=== PATIENT | female | born 1995 | race Two or more races ===

== ENCOUNTER 2020-05-28 07:12 | Inpatient (IN) | payer BC ==
[2020-05-28] MEDS ORDERED: Misoprostol 25 MCG (1/4 of 100 MCG) Tab ONE (07:26)
[2020-05-28] MEDS ORDERED: Oxytocin/Lactated Ringers 10 UNIT/1,000 ML BAG IV SCH (07:30)
[2020-05-28] MEDS ORDERED: Lactated Ringers 1,000 ML IV SCH (07:30)
[2020-05-28] MEDS ORDERED: Sodium Chloride 0.9% 10 ML Syringe FLUSH PRN ×2 (07:30→08:00)
[2020-05-28] MEDS ORDERED: Ondansetron 4 MG/2 ML SDV IVPUSH PRN (07:30)
[2020-05-28] MEDS ORDERED: Nalbuphine 10 MG/ML Syringe IVPUSH PRN (07:30)
--- NOTE | 2020-05-28 07:30 | PCM.LDHP ---
L&D History of Present Illness - General Date of Service: 05/28/20 Admit Problem/Dx: Admission Diagnosis/Problem Admission Diagnosis/Problem Source of Information: Patient History Limitations: Reports: No Limitations - History of Present Illness Introduction:: Patient is a 25 y/o at 40 0/7 wks who presents for elective IOL. Doing well today. No significant contractions - Related Data Allergies/Adverse Reactions: Allergies Allergy/AdvReac Type Severity Reaction Status Date / Time No Known Allergies Allergy Verified 05/28/20 08:27 Home Medications: Home Meds Calcium Carbonate [Tums] 200 mg PO ASDIRECTED 05/28/20 [History] Doxylamine Succinate [Unisom Sleep Aid] 25 mg PO BEDTIME PRN 05/28/20 [History] Prenat 115/Iron Fum/Folic/Dss [ 19 Tablet] 1 each PO DAILY 05/28/20 [History] Past Medical History [employer] History: Reports: : 1 Para: 0 LMP (Approximate): - Infectious Disease History Infectious Disease History: Reports: TB - Past Surgical History HEENT Surgical History: Reports: Naso-Sinus Surgery Social & Family History - Tobacco Use Smoking Status *Q: Never Smoker - Alcohol Use Alcohol Use History: No - Recreational Drug Use Recreational Drug Use: No H&P Review of Systems - Review of Systems: Review Of Systems: See Below General: Reports: No Symptoms Pulmonary: Reports: No Symptoms Cardiovascular: Reports: No Symptoms Gastrointestinal: Reports: No Symptoms Genitourinary: Reports: No Symptoms Musculoskeletal: Reports: No Symptoms Neurological: Reports: No Symptoms L&D Exam - Exam Exam: See Below - OB Specific Contraction Intensity: Irritability Movement: Active Heart Tones: Present Heart Tones per Min: 135 Heart Rate (FHR) Variability: Moderate (6-25 bmp) Presentation: Vertex - Wooten Score Wooten Score Cervix Position: Posterior Wooten Score Consistency: Soft Wooten Score Effacement: 31-50% Wooten Score Dilation: 1-2 cm Wooten Score Infant's Station: -2 Wooten Score Total: 5 - Exam General: Alert, Oriented, Cooperative Lungs: Clear to Auscultation, Normal Respiratory Effort Cardiovascular: Regular Rate, Regular Rhythm GI/Abdominal Exam: Soft, Non-Tender Genitourinary: Normal external exam Extremities: Normal Inspection Skin: Warm, Dry, Intact - Patient Data Result Diagrams: 05/28/20 07:54 - Problem List (1) 40 weeks gestation of SNOMED Code(s): 74940382 ICD Code: Z3A.40 - 40 WEEKS GESTATION OF Status: Acute Current Visit: Yes (2) GBS (group B Streptococcus carrier), +RV culture, currently SNOMED Code(s): 4730366785249, [id number], [id number] ICD Code: O99.820 - STREPTOCOCCUS B CARRIER STATE COMPLICATING Status: Acute Current Visit: Yes Problem List Initiated/Reviewed/Updated: Yes Assessment/Plan Comment:: * Labs done * Cytotec for IOL. Pitocin/AROM when able * GBS positive, will start antibiotics when more active * Pain management per patient preference * Anticipate
[2020-05-28] MEDS ORDERED: Lidocaine 1%/Sod Bicarbonate in NS 8.4% 1 ML Syringe IDERM PRN (08:00)
[2020-05-28] MEDS: Misoprostol 25 MCG (1/4 of 100 MCG) Tab VAG PRN ×2 (12:35→17:06)
--- NOTE | 2020-05-28 12:48 | PCM.PNLD ---
Labor Progress Note - VS & Meds Vital Signs: Last Vital Signs Temp 36.6 C 05/28/20 07:30 Pulse 84 05/28/20 07:30 Resp 14 05/28/20 07:30 BP 115/76 05/28/20 07:30 Pulse Ox 100 05/28/20 07:30 Active Medications: Current Medications Lactated Ringer's (Ringers, Lactated) 1,000 mls @ 40 mls/hr IV ASDIRECTED TYLER Oxytocin/Lactated Ringer's (Pitocin In Lr 10 Units/1,000 Ml) 10 unit in 1,000 mls @ 12 mls/hr IV TITRATE TYLER; Protocol Penicillin G Potassium 5 (millunits/ Sodium Chloride) 100 mls @ 55 mls/hr IV ONETIME TYLER Penicillin G Potassium 2.5 (millunits/ Sodium Chloride) 100 mls @ 55 mls/hr IV Q4H [facility]ER Oxytocin/Lactated Ringer's (Pitocin In Lr 10 Units/1,000 Ml) 10 unit in 1,000 mls @ 500 mls/hr IV .CONTINUOUS [facility] Lactated Ringer's (Ringers, Lactated) 1,000 mls @ 125 mls/hr IV ASDIRECTED [facility]YLER Lidocaine/Sodium Bicarbonate (Buffered Lidocaine 1% In Ns 8.4%) 0.25 ml IDERM ONETIME PRN PRN Reason: Prior to IV Start Misoprostol (Cytotec) 25 mcg VAG Q4H PRN PRN Reason: cervical ripening Last Admin: 05/28/20 12:35 Dose: 25 mcg Documented by: Nalbuphine HCl (Nubain) 10 mg IVPUSH Q2H PRN PRN Reason: Pain Ondansetron HCl (Zofran) 4 mg IVPUSH Q4H PRN PRN Reason: Nausea/Vomiting Sodium Chloride (Saline Flush) 10 ml FLUSH ASDIRECTED PRN PRN Reason: Keep Vein Open Sodium Chloride (Saline Flush) 10 ml FLUSH ASDIRECTED PRN PRN Reason: Keep Vein Open Discontinued Medications Misoprostol (Cytotec) Confirm Administered Dose 25 mcg .ROUTE .STK-MED ONE Stop: 05/28/20 07:27 Last Admin: 05/28/20 07:30 Dose: 25 mcg Documented by: - Uterine Contractions Uterine Monitoring Mode: External [place] Contraction Intensity: Irritability Uterine Resting Tone: Soft - Monitoring Monitor Mode: External Ultrasound Heart Rate (FHR) Baseline: 135 Heart Rate (FHR) Variability: Moderate (6-25 bmp) Accelerations: Present, 15x15 Decelerations: None Strip Review: Category I - Vaginal Exam Dilation (cm): 1 Effacement (Percent): 75 Station: -2 Cervical Position: Midposition - Labor Progress (Free Text) Labor Progress: Doing well. Feeling some menstrual cramps with 1st dose of Cytotec. 2nd dose placed. Attempted to place mendoza, but not able to complete. Will try again later
[2020-05-28] MEDS ORDERED: Penicillin G Potassium 5 MILLUNITS in Sodium Chloride 0.9% 100 ML IV SCH (16:00)
--- NOTE | 2020-05-28 17:14 | PCM.PNLD ---
Labor Progress Note - VS & Meds Vital Signs: Last Vital Signs Temp 36.6 C 05/28/20 07:30 Pulse 84 05/28/20 07:30 Resp 14 05/28/20 07:30 BP 115/76 05/28/20 07:30 Pulse Ox 100 05/28/20 07:30 Active Medications: Current Medications Lactated Ringer's (Ringers, Lactated) 1,000 mls @ 40 mls/hr IV ASDIRECTED TYLER Oxytocin/Lactated Ringer's (Pitocin In Lr 10 Units/1,000 Ml) 10 unit in 1,000 mls @ 12 mls/hr IV TITRATE TYLER; Protocol Penicillin G Potassium 5 (millunits/ Sodium Chloride) 100 mls @ 55 mls/hr IV ONETIME TYELR Penicillin G Potassium 2.5 (millunits/ Sodium Chloride) 100 mls @ 55 mls/hr IV Q4H TYLER Oxytocin/Lactated Ringer's (Pitocin In Lr 10 Units/1,000 Ml) 10 unit in 1,000 mls @ 500 mls/hr IV .CONTINUOUS TYLER Lactated Ringer's (Ringers, Lactated) 1,000 mls @ 125 mls/hr IV ASDIRECTED TYLER Lidocaine/Sodium Bicarbonate (Buffered Lidocaine 1% In Ns 8.4%) 0.25 ml IDERM ONETIME PRN PRN Reason: Prior to IV Start Misoprostol (Cytotec) 25 mcg VAG Q4H PRN PRN Reason: cervical ripening Last Admin: 05/28/20 17:06 Dose: 25 mcg Documented by: Nalbuphine HCl (Nubain) 10 mg IVPUSH Q2H PRN PRN Reason: Pain Ondansetron HCl (Zofran) 4 mg IVPUSH Q4H PRN PRN Reason: Nausea/Vomiting Sodium Chloride (Saline Flush) 10 ml FLUSH ASDIRECTED PRN PRN Reason: Keep Vein Open Sodium Chloride (Saline Flush) 10 ml FLUSH ASDIRECTED PRN PRN Reason: Keep Vein Open Discontinued Medications Misoprostol (Cytotec) Confirm Administered Dose 25 mcg .ROUTE .STK-MED ONE Stop: 05/28/20 07:27 Last Admin: 05/28/20 07:30 Dose: 25 mcg Documented by: - Uterine Contractions Uterine Monitoring Mode: External [place] Contraction Intensity: Mild Uterine Resting Tone: Soft - Monitoring Monitor Mode: External Ultrasound Heart Rate (FHR) Baseline: 125 Heart Rate (FHR) Variability: Moderate (6-25 bmp) Accelerations: Present, 15x15 Decelerations: None Strip Review: Category I - Vaginal Exam Dilation (cm): 1 Effacement (Percent): 75 Station: -2 Cervical Position: Midposition - Labor Progress (Free Text) Labor Progress: Doing well. 3rd cytotec placed with mendoza bulb. Patient tolerated well.
[2020-05-28] MEDS: Lactated Ringers 1,000 ML IV SCH (22:50)
[2020-05-28] MEDS: Oxytocin/Lactated Ringers 10 UNIT/1,000 ML BAG IV SCH (22:51)
[2020-05-29] MEDS ORDERED: Bupivacaine 0.25% 10 ML SDV ONE
[2020-05-29] MEDS: Penicillin G Potassium 2.5 MILLUNITS in Sodium Chloride 0.9% 100 ML IV SCH ×5 (00:10→15:50)
[2020-05-29] MEDS ORDERED: Penicillin G Potassium 5 MILLUNITS in Sodium Chloride 0.9% 100 ML IV ONE (03:15)
[2020-05-29] MEDS ORDERED: diphenhydrAMINE 50 MG/ML SDV IVPUSH PRN (05:07)
[2020-05-29] MEDS ORDERED: ePHEDrine 50 MG/ML SDV IVPUSH PRN (05:07)
[2020-05-29] MEDS ORDERED: fentaNYL 100 MCG/2 ML SDV EPIDUR PRN (05:07)
[2020-05-29] MEDS: Bupivacaine/fentaNYL/NS 100 ML Bag EPIDUR PRN ×2 (05:22→12:01)
--- NOTE | 2020-05-29 05:41 | PCM.PREANE ---
Preanesthetic Assessment - Procedure Proposed Procedure: Epidural - Anesthesia/Transfusion/Family Hx Anesthesia History: Prior Anesthesia Without Reaction Family History of Anesthesia Reaction: No Transfusion History: No Prior Transfusion(s) - Review of Systems General: Fatigue, Malaise Pulmonary: No Symptoms Cardiovascular: No Symptoms Gastrointestinal: Abdominal Pain (labor) Neurological: Numbness (hands) Other: Reports: None - Physical Assessment Vital Signs: Last Vital Signs Temp 36.6 C 05/28/20 07:30 Pulse 84 05/28/20 07:30 Resp 14 05/28/20 07:30 BP 115/76 05/28/20 07:30 Pulse Ox 100 05/28/20 07:30 Height: 1.57 m Weight: 62.142 kg ASA Class: 2 Mental Status: Alert & Oriented x3 Airway Class: Mallampati = 1 Dentition: Reports: Normal Dentition Thyro-Mental Finger Breadths: 3 Mouth Opening Finger Breadths: 3 ROM/Head Extension: Full Lungs: Clear to Auscultation, Normal Respiratory Effort Cardiovascular: Regular Rate, Regular Rhythm - Lab Values: Laboratory Last Values WBC 7.82 K/mm3 (3.98-10.04) 05/28/20 07:54 RBC 3.70 M/mm3 (3.98-5.22) L 05/28/20 07:54 Hgb 10.1 gm/dl (11.2-15.7) L 05/28/20 07:54 Hct 32.3 % (34.1-44.9) L 05/28/20 07:54 MCV 87.3 fl (79.4-94.8) 05/28/20 07:54 MCH 27.3 pg (25.6-32.2) 05/28/20 07:54 MCHC 31.3 g/dl (32.2-35.5) L 05/28/20 07:54 RDW Std Deviation 46.8 fL (36.4-46.3) H 05/28/20 07:54 Plt Count 221 K/mm3 (182-369) 05/28/20 07:54 MPV 11.2 fl (9.4-12.3) 05/28/20 07:54 RPR Non-reactive (NONREACTIVE) 05/28/20 07:54 COVID-19 (AIDEN) Negative (NEGATIVE) 05/28/20 07:58 Blood Type O POSITIVE 05/28/20 07:54 Gel Antibody Screen Negative 05/28/20 07:54 - Allergies Allergies/Adverse Reactions: Allergies Allergy/AdvReac Type Severity Reaction Status Date / Time No Known Allergies Allergy Verified 05/28/20 08:27 - Anesthesia Plan Pre-Op Medication Ordered: None - Acknowledgements Anesthesia Type Planned: Epidural Pt an Appropriate Candidate for the Planned Anesthesia: Yes Alternatives and Risks of Anesthesia Discussed w Pt/Guardian: Yes Pt/Guardian Understands and Agrees with Anesthesia Plan: Yes PreAnesthesia Questionnaire Gastrointestinal History: Reports: GERD 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: - Infectious Disease History Infectious Disease History: Reports: TB - Past Surgical History HEENT Surgical History: Reports: Naso-Sinus Surgery - SUBSTANCE USE Smoking Status *Q: Never Smoker Second Hand Smoke Exposure: No Recreational Drug Use History: No - HOME MEDS Home Medications: Home Meds Calcium Carbonate [Tums] 200 mg PO ASDIRECTED 05/28/20 [History] Doxylamine Succinate [Unisom Sleep Aid] 25 mg PO BEDTIME PRN 05/28/20 [History] Prenat 115/Iron Fum/Folic/Dss [ 19 Tablet] 1 each PO DAILY 05/28/20 [History] - CURRENT (IN HOUSE) MEDS Current Meds: Current Medications Diphenhydramine HCl (Benadryl) 25 mg IVPUSH Q6H PRN PRN Reason: pruritis Ephedrine Sulfate (Ephedrine Sulfate) 5 mg IVPUSH ASDIRECTED PRN PRN Reason: Hypotension Fentanyl (Sublimaze) 100 mcg EPIDUR Q3H PRN PRN Reason: Pain Last Admin: 05/29/20 05:22 Dose: 100 mcg Documented by: Fentanyl/Bupivacaine HCl (Fentanyl/Bupivacaine/Ns 2 Mcg-0.125% 100 Ml) 100 ml EPIDUR ASDIRECTED PRN PRN Reason: Pain Last Admin: 05/29/20 05:22 Dose: 100 ml Documented by: Lactated Ringer's (Ringers, Lactated) 1,000 mls @ 40 mls/hr IV ASDIRECTED TYLER Oxytocin/Lactated Ringer's (Pitocin In Lr 10 Units/1,000 Ml) 10 unit in 1,000 mls @ 12 mls/hr IV TITRATE TYLER; Protocol Last Titration: 05/29/20 04:00 Dose: 12 munits/min, 72 mls/hr Documented by: Oxytocin/Lactated Ringer's (Pitocin In Lr 10 Units/1,000 Ml) 10 unit in 1,000 mls @ 500 mls/hr IV .CONTINUOUS [facility] Lactated Ringer's (Ringers, Lactated) 1,000 mls @ 125 mls/hr IV ASDIRECTED [facility] Last Admin: 05/28/20 22:50 Dose: 125 mls/hr Documented by: Penicillin G Potassium 2.5 (millunits/ Sodium Chloride) 100 mls @ 55 mls/hr IV Q4H [facility] Lidocaine/Sodium Bicarbonate (Buffered Lidocaine 1% In Ns 8.4%) 0.25 ml IDERM ONETIME PRN PRN Reason: Prior to IV Start Misoprostol (Cytotec) 25 mcg VAG Q4H PRN PRN Reason: cervical ripening Last Admin: 05/28/20 17:06 Dose: 25 mcg Documented by: Nalbuphine HCl (Nubain) 10 mg IVPUSH Q2H PRN PRN Reason: Pain Ondansetron HCl (Zofran) 4 mg IVPUSH Q4H PRN PRN Reason: Nausea/Vomiting Sodium Chloride (Saline Flush) 10 ml FLUSH ASDIRECTED PRN PRN Reason: Keep Vein Open Sodium Chloride (Saline Flush) 10 ml FLUSH ASDIRECTED PRN PRN Reason: Keep Vein Open Discontinued Medications Penicillin G Potassium 2.5 (millunits/ Sodium Chloride) 100 mls @ 55 mls/hr IV Q4H [facility] Last Admin: 05/29/20 00:11 Dose: Not Given Documented by: Penicillin G Potassium 5 (millunits/ Sodium Chloride) 100 mls @ 55 mls/hr IV ONETIME ONE Stop: 05/29/20 05:04 Last Admin: 05/29/20 03:18 Dose: 55 mls/hr Documented by: Misoprostol (Cytotec) Confirm Administered Dose 25 mcg .ROUTE .STK-MED ONE Stop: 05/28/20 07:27 Last Admin: 05/28/20 07:30 Dose: 25 mcg Documented by:
[2020-05-29] MEDS: Lactated Ringers 1,000 ML IV SCH ×3 (06:41→18:05)
--- NOTE | 2020-05-29 06:53 | PCM.PNLD ---
Labor Progress Note - VS & Meds Vital Signs: Last Vital Signs Temp 36.6 C 05/28/20 07:30 Pulse 84 05/28/20 07:30 Resp 14 05/28/20 07:30 BP 115/76 05/28/20 07:30 Pulse Ox 100 05/28/20 07:30 Active Medications: Current Medications Diphenhydramine HCl (Benadryl) 25 mg IVPUSH Q6H PRN PRN Reason: pruritis Ephedrine Sulfate (Ephedrine Sulfate) 5 mg IVPUSH ASDIRECTED PRN PRN Reason: Hypotension Fentanyl (Sublimaze) 100 mcg EPIDUR Q3H PRN PRN Reason: Pain Last Admin: 05/29/20 05:22 Dose: 100 mcg Documented by: Fentanyl/Bupivacaine HCl (Fentanyl/Bupivacaine/Ns 2 Mcg-0.125% 100 Ml) 100 ml EPIDUR ASDIRECTED PRN PRN Reason: Pain Last Admin: 05/29/20 05:22 Dose: 100 ml Documented by: Lactated Ringer's (Ringers, Lactated) 1,000 mls @ 40 mls/hr IV ASDIRECTED TYLER Oxytocin/Lactated Ringer's (Pitocin In Lr 10 Units/1,000 Ml) 10 unit in 1,000 mls @ 12 mls/hr IV TITRATE TYLER; Protocol Last Titration: 05/29/20 06:40 Dose: 14 munits/min, 84 mls/hr Documented by: Oxytocin/Lactated Ringer's (Pitocin In Lr 10 Units/1,000 Ml) 10 unit in 1,000 mls @ 500 mls/hr IV .CONTINUOUS TYLER Lactated Ringer's (Ringers, Lactated) 1,000 mls @ 125 mls/hr IV ASDIRECTED TYLER Last Admin: 05/29/20 06:41 Dose: 125 mls/hr Documented by: Penicillin G Potassium 2.5 (millunits/ Sodium Chloride) 100 mls @ 55 mls/hr IV Q4H [facility] Lidocaine/Sodium Bicarbonate (Buffered Lidocaine 1% In Ns 8.4%) 0.25 ml IDERM ONETIME PRN PRN Reason: Prior to IV Start Misoprostol (Cytotec) 25 mcg VAG Q4H PRN PRN Reason: cervical ripening Last Admin: 05/28/20 17:06 Dose: 25 mcg Documented by: Nalbuphine HCl (Nubain) 10 mg IVPUSH Q2H PRN PRN Reason: Pain Ondansetron HCl (Zofran) 4 mg IVPUSH Q4H PRN PRN Reason: Nausea/Vomiting Sodium Chloride (Saline Flush) 10 ml FLUSH ASDIRECTED PRN PRN Reason: Keep Vein Open Sodium Chloride (Saline Flush) 10 ml FLUSH ASDIRECTED PRN PRN Reason: Keep Vein Open Discontinued Medications Penicillin G Potassium 2.5 (millunits/ Sodium Chloride) 100 mls @ 55 mls/hr IV Q4H [facility]YLER Last Admin: 05/29/20 00:11 Dose: Not Given Documented by: Penicillin G Potassium 5 (millunits/ Sodium Chloride) 100 mls @ 55 mls/hr IV ONETIME ONE Stop: 05/29/20 05:04 Last Admin: 05/29/20 03:18 Dose: 55 mls/hr Documented by: Misoprostol (Cytotec) Confirm Administered Dose 25 mcg .ROUTE .STK-MED ONE Stop: 05/28/20 07:27 Last Admin: 05/28/20 07:30 Dose: 25 mcg Documented by: - Uterine Contractions Uterine Monitoring Mode: External [place] Contraction Intensity: Moderate Uterine Resting Tone: Soft - Monitoring Monitor Mode: External Ultrasound Heart Rate (FHR) Baseline: 130 Heart Rate (FHR) Variability: Moderate (6-25 bmp) Accelerations: Present, 15x15 Decelerations: Variable, Intermittent (<50% x 20 min) Strip Review: Category II - Vaginal Exam Dilation (cm): 4 Effacement (Percent): 75 Station: -2 Cervical Position: Midposition - Labor Progress (Free Text) Labor Progress: Patient doing well. Pitocin started around 2230. Currently at 14. PCN started at 0330. Epidural done about 2 hours ago. AROM performed with release of scant, clear fluid. Continue present management
--- NOTE | 2020-05-29 10:58 | PCM.PNLD ---
Labor Progress Note - VS & Meds Vital Signs: Last Vital Signs Temp 36.6 C 05/28/20 07:30 Pulse 84 05/28/20 07:30 Resp 14 05/28/20 07:30 BP 115/76 05/28/20 07:30 Pulse Ox 100 05/28/20 07:30 Active Medications: Current Medications Diphenhydramine HCl (Benadryl) 25 mg IVPUSH Q6H PRN PRN Reason: pruritis Ephedrine Sulfate (Ephedrine Sulfate) 5 mg IVPUSH ASDIRECTED PRN PRN Reason: Hypotension Fentanyl (Sublimaze) 100 mcg EPIDUR Q3H PRN PRN Reason: Pain Last Admin: 05/29/20 05:22 Dose: 100 mcg Documented by: Fentanyl/Bupivacaine HCl (Fentanyl/Bupivacaine/Ns 2 Mcg-0.125% 100 Ml) 100 ml EPIDUR ASDIRECTED PRN PRN Reason: Pain Last Admin: 05/29/20 05:22 Dose: 100 ml Documented by: Lactated Ringer's (Ringers, Lactated) 1,000 mls @ 40 mls/hr IV ASDIRECTED TYLER Oxytocin/Lactated Ringer's (Pitocin In Lr 10 Units/1,000 Ml) 10 unit in 1,000 mls @ 12 mls/hr IV TITRATE TYLER; Protocol Last Titration: 05/29/20 09:57 Dose: 18 munits/min, 108 mls/hr Documented by: Oxytocin/Lactated Ringer's (Pitocin In Lr 10 Units/1,000 Ml) 10 unit in 1,000 mls @ 500 mls/hr IV .CONTINUOUS TYLER Lactated Ringer's (Ringers, Lactated) 1,000 mls @ 125 mls/hr IV ASDIRECTED TYLER Last Admin: 05/29/20 10:20 Dose: 125 mls/hr Documented by: Penicillin G Potassium 2.5 (millunits/ Sodium Chloride) 100 mls @ 55 mls/hr IV Q4H [facility]YLER Last Admin: 05/29/20 07:35 Dose: 55 mls/hr Documented by: Lidocaine/Sodium Bicarbonate (Buffered Lidocaine 1% In Ns 8.4%) 0.25 ml IDERM ONETIME PRN PRN Reason: Prior to IV Start Misoprostol (Cytotec) 25 mcg VAG Q4H PRN PRN Reason: cervical ripening Last Admin: 05/28/20 17:06 Dose: 25 mcg Documented by: Nalbuphine HCl (Nubain) 10 mg IVPUSH Q2H PRN PRN Reason: Pain Ondansetron HCl (Zofran) 4 mg IVPUSH Q4H PRN PRN Reason: Nausea/Vomiting Sodium Chloride (Saline Flush) 10 ml FLUSH ASDIRECTED PRN PRN Reason: Keep Vein Open Sodium Chloride (Saline Flush) 10 ml FLUSH ASDIRECTED PRN PRN Reason: Keep Vein Open Discontinued Medications Penicillin G Potassium 2.5 (millunits/ Sodium Chloride) 100 mls @ 55 mls/hr IV Q4H TYLER Last Admin: 05/29/20 00:11 Dose: Not Given Documented by: Penicillin G Potassium 5 (millunits/ Sodium Chloride) 100 mls @ 55 mls/hr IV ONETIME ONE Stop: 05/29/20 05:04 Last Admin: 05/29/20 03:18 Dose: 55 mls/hr Documented by: Misoprostol (Cytotec) Confirm Administered Dose 25 mcg .ROUTE .STK-MED ONE Stop: 05/28/20 07:27 Last Admin: 05/28/20 07:30 Dose: 25 mcg Documented by: - Uterine Contractions Uterine Monitoring Mode: External [place] Contraction Intensity: Moderate to Strong Uterine Resting Tone: Soft - Monitoring Monitor Mode: External Ultrasound Heart Rate (FHR) Baseline: 130 Heart Rate (FHR) Variability: Moderate (6-25 bmp) Accelerations: Present, 15x15 Decelerations: Late (rare) Strip Review: Category II - Vaginal Exam Dilation (cm): 8 Effacement (Percent): 90 Station: 0 Cervical Position: Anterior - Labor Progress (Free Text) Labor Progress: Doing well. On 18 of pitocin. Continue present management
[2020-05-29] MEDS: Oxytocin/Lactated Ringers 10 UNIT/1,000 ML BAG IV SCH (12:01)
[2020-05-29] MEDS ORDERED: Methylergonovine 0.2 MG/1 ML Amp ONE (17:22)
[2020-05-29] MEDS ORDERED: Methylergonovine 0.2 MG/1 ML Amp IM STA (17:47)
--- NOTE | 2020-05-29 17:52 | PCM.DEL ---
L & D Note - General Info Date of Service: 05/29/20 - Delivery Note Labor: Induced by ARM, Induced by Oxytocin Cervical Ripening Method: Balloon Device, Misoprostil Delivery Outcome: Livebirth Infant Delivery Method: Spontaneous Vaginal Delivery-Single Delivery Mode: Spontaneous Presentation: Left Occiput Anterior ([place]) Nuchal Cord: None Anesthesia Type: Epidural Amniotic Fluid Description: Clear Episiotomy Type: None Laceration: 2nd Degree, Perineal Suture type: Vicryl Suture size: 2-0 Placenta: Intact, Spontaneous Cord: 3 Vessels Estimated Blood Loss: 500 Resuscitation Needed: Yes : Bulb Syringe, Stimulated, Warmed, [place] Used, Warmer Used Delivery Comments (Free Text/Narrative):: The patient was pushing in the dorsal lithotomy position. Sterile vaginal exam complete/complete/+3 station. head in [place] presentation. Maternal pushing effort was good and the pelvis was felt to be adequate for an instrument assisted delivery. Given maternal exhaustion, the decision was made to proceed with vacuum assisted vaginal delivery. The mushroom cup was placed without difficulty at 1658. Subsequent vacuum assisted vaginal delivery with pushing at 1703 over 3 contractions. Total pressure applied 550 mm Hg. Total pop offs 0. Suction was removed following delivery of the head. No nuchal cord. The remainder of the infant delivered without difficulty. The umbilical cord was clamped and cut and the infant was taken to the warmer. Inspection of the perineum following delivery with 2nd degree with was close, but did not involve the rectum. Rectal exam confirmed this. Laceration repaired with a 2-0 vicryl in the typical fashion. After delivery patient with slow continued bleeding. Given IM methergine and sweep of [place] done. Still with continued slight bleeding and findings of maternal tachycardia and BP's of 50/30's. Given IM hemabate and IV tranexamic acid. Given IVF as well. Eventually responded to interventions. Hb down and 8.3 from admission value around 10. Vacuum Extractor Progress Note - Alternative Labor Strategies Considered Alternative Labor Strategies Considered:: Reports: Yes Strategies Considered:: Reports: Contraction Intensity Adequate, Position Changes Used to Facilitate Rotation & Descent, Empty Bladder, Rest Indications Considered:: Reports: Yes Indications:: Reports: Shortening of 2nd Stage for Maternal Benefit Time Out:: Reports: Yes - Patient Prepared Patient Prepared:: Reports: Yes Informed Consent:: Reports: Verbal Risks: Reports: Yes Risks Include:: Reports: Laceration, Shoulder Dystocia, Maternal Injury Anesthesia/Analgesia Adequate:: Reports: Yes - Probability of Success High Probability of Success:: Reports: Yes Weight Estimated:: Reports: AGA Patient Diabetic:: Reports: Yes Pelvis Adequate:: Reports: Yes Position:: [place] Asynclitic:: Reports: No Station:: +3 - Application Time Maximum Application Time & Number of Pop-Offs Predetermined:: Reports: Yes Maximum Pressure Maintained in [place] (cm Hg):: 550 Total Application Time (min): *max=20min: 5 Number of Times Cup Disengaged:: 0 Type of Vacuum Used:: Reports: Cup: Mushroom type Vacuum Extraction: Successful - Exit Strategy Exit strategy available:: Reports: Yes and resuscitation teams readily available:: Reports: Yes - General Info Date of Service: 05/29/20 - Patient Data Vitals - Most Recent: Last Vital Signs Temp 36.6 C 05/28/20 07:30 Pulse 84 05/28/20 07:30 Resp 14 05/28/20 07:30 BP 115/76 05/28/20 07:30 Pulse Ox 100 05/28/20 07:30 Weight - Most Recent: 62.142 kg Lab Results Last 24 Hours: Laboratory Results - last 24 hr 05/28/20 Range/Units 07:54 RPR Non-reactive (NONREACTIVE) - Problem List & Annotations (1) 40 weeks gestation of SNOMED Code(s): 42424562 Code(s): Z3A.40 - 40 WEEKS GESTATION OF Status: Acute Current Visit: Yes (2) GBS (group B Streptococcus carrier), +RV culture, currently SNOMED Code(s): 6309604725478, 110221874, 0746274023636 Code(s): O99.820 - STREPTOCOCCUS B CARRIER STATE COMPLICATING Status: Acute Current Visit: Yes (3) Vacuum extraction, delivered, current hospitalization SNOMED Code(s): 783219493 Code(s): O66.5 - ATTEMPTED APPLICATION OF VACUUM EXTRACTOR AND FORCEPS Status: Acute Current Visit: Yes - Problem List Review Problem List Initiated/Reviewed/Updated: Yes - My Orders Last 24 Hours: My Active Orders 05/29/20 07:30 Penicillin G Potassium [Pfizerpen] 2.5 millunits Sodium Chloride 0.9% [Normal Saline] 100 ml IV Q4H - Assessment Assessment:: PPD#0 - Plan Plan:: * Routine cares * Breast feeding * Continue to monitor hemodynamic status closely. Will plan for CBC in AM * Discharge home in 1-2 days
[2020-05-29] MEDS ORDERED: Carboprost Tromethamine 250 MCG/1 ML Amp ONE (17:59)
[2020-05-29] MEDS ORDERED: Carboprost Tromethamine 250 MCG/1 ML Amp IM ONE (18:05)
[2020-05-29] MEDS ORDERED: Promethazine 25 MG/ML SDV IM ONE (18:11)
[2020-05-29] MEDS ORDERED: Sennosides 8.6 MG Tab PO PRN (18:30)
[2020-05-29] MEDS ORDERED: Acetaminophen 325 MG Tab PO PRN (18:30)
[2020-05-29] MEDS ORDERED: Docusate Sodium 100 MG Cap PO PRN (18:30)
[2020-05-29] MEDS ORDERED: Benzocaine/Menthol 20%-0.5% Spray 56 GM Canister TOP PRN (18:30)
[2020-05-29] MEDS ORDERED: Witch Hazel Medicated Pads 40/Jar TOP PRN (18:30)
--- NOTE | 2020-05-29 20:37 | PCM.SN.2 ---
- Free Text/Narrative Note: 2034 Patient still with tachycardic into 120-130's. Still with some hypotensive episodes. Does, however, feel relatively well only with some nausea, weakness. Will given 1 unit of PRBCs and then repeat CBC in AM Rowena Nuñez.
[2020-05-29] MEDS ORDERED: Sodium Chloride 0.9% 1,000 ML IV SCH (20:45)
[2020-05-30] MEDS: Ibuprofen 600 MG Tab PO PRN ×2 (06:10→15:12)
--- NOTE | 2020-05-30 07:07 | PCM.PNPP ---
- General Info Date of Service: 05/30/20 Functional Status: Reports: Pain Controlled, Tolerating Diet, Urinating - Review of Systems General: Reports: Fatigue Pulmonary: Reports: No Symptoms Cardiovascular: Reports: No Symptoms Gastrointestinal: Reports: Nausea Genitourinary: Reports: Other (perineal pain) Musculoskeletal: Reports: No Symptoms Neurological: Reports: No Symptoms - Patient Data Vital Signs - Most Recent: Last Vital Signs Temp 36.8 C 05/30/20 02:03 Pulse 89 05/30/20 02:03 Resp 16 05/30/20 02:03 BP 121/69 05/30/20 02:03 Pulse Ox 100 05/30/20 02:03 Weight - Most Recent: 62.142 kg I&O - Last 24 Hours: Intake & Output 05/29/20 05/30/20 05/30/20 22:59 06:59 14:59 Intake Total 5600 360 Output Total 800 Balance 4800 360 Lab Results - Last 24 Hours: Laboratory Results - last 24 hr 05/28/20 05/29/20 05/29/20 Range/Units 07:54 18:25 18:25 WBC 19.64 H (3.98-10.04) K/mm3 RBC 3.02 L (3.98-5.22) M/mm3 Hgb 8.3 L D (11.2-15.7) gm/dl Hct 26.4 L (34.1-44.9) % MCV 87.4 (79.4-94.8) fl MCH 27.5 (25.6-32.2) pg MCHC 31.4 L (32.2-35.5) g/dl RDW Std Deviation 46.5 H (36.4-46.3) fL Plt Count 192 (182-369) K/mm3 MPV 10.4 (9.4-12.3) fl PT 10.4 (9.7-12.0) SECONDS INR 0.95 APTT 32 H (22-31) SECONDS Fibrinogen 414 (187-446) mg/dL Crossmatch See Detail 05/30/20 Range/Units 05:39 WBC 15.77 H (3.98-10.04) K/mm3 RBC 2.64 L (3.98-5.22) M/mm3 Hgb 7.3 L* (11.2-15.7) gm/dl Hct 22.9 L (34.1-44.9) % MCV 86.7 (79.4-94.8) fl MCH 27.7 (25.6-32.2) pg MCHC 31.9 L (32.2-35.5) g/dl RDW Std Deviation 44.8 (36.4-46.3) fL Plt Count 151 L (182-369) K/mm3 MPV 10.5 (9.4-12.3) fl PT (9.7-12.0) SECONDS INR APTT (22-31) SECONDS Fibrinogen (187-446) mg/dL Crossmatch Med Orders - Current: Current Medications Acetaminophen (Tylenol) 650 mg PO Q4H PRN PRN Reason: mild pain or fever Benzocaine/Menthol (Dermoplast Pain Relief [place]) 0 gm TOP ASDIRECTED PRN PRN Reason: Perineal Comfort Measure Last Admin: 05/29/20 22:37 Dose: 1 canister Documented by: Docusate Sodium (Colace) 100 mg PO BID PRN PRN Reason: Constipation Sodium Chloride (Normal Saline) 1,000 mls @ 125 mls/hr IV ASDIRECTED TYLER Last Admin: 05/29/20 22:09 Dose: 125 mls/hr Documented by: Ibuprofen (Motrin) 600 mg PO Q6H PRN PRN Reason: Mild pain or fever Senna (Senna) 8.6 mg PO BEDTIME PRN PRN Reason: Constipation Witch Steven (Tucks) 1 pad TOP ASDIRECTED PRN PRN Reason: Perineal Comfort Measure Last Admin: 05/29/20 22:37 Dose: 1 container Documented by: Discontinued Medications Carboprost Tromethamine (Hemabate Ds) Confirm Administered Dose 250 mcg .ROUTE .STK-MED ONE Stop: 05/29/20 18:00 Last Admin: 05/29/20 18:08 Dose: Not Given Documented by: Carboprost Tromethamine (Hemabate Ds) 250 mcg IM ONETIME ONE Stop: 05/29/20 18:06 Last Admin: 05/29/20 18:03 Dose: 250 mcg Documented by: Diphenhydramine HCl (Benadryl) 25 mg IVPUSH Q6H PRN PRN Reason: pruritis Ephedrine Sulfate (Ephedrine Sulfate) 5 mg IVPUSH ASDIRECTED PRN PRN Reason: Hypotension Fentanyl (Sublimaze) 100 mcg EPIDUR Q3H PRN PRN Reason: Pain Last Admin: 05/29/20 05:22 Dose: 100 mcg Documented by: Fentanyl/Bupivacaine HCl (Fentanyl/Bupivacaine/Ns 2 Mcg-0.125% 100 Ml) 100 ml EPIDUR ASDIRECTED PRN PRN Reason: Pain Last Admin: 05/29/20 12:01 Dose: 100 ml Documented by: Lactated Ringer's (Ringers, Lactated) 1,000 mls @ 40 mls/hr IV ASDIRECTED TYLER Oxytocin/Lactated Ringer's (Pitocin In Lr 10 Units/1,000 Ml) 10 unit in 1,000 mls @ 12 mls/hr IV TITRATE TYLER; Protocol Last Titration: 05/29/20 16:39 Dose: 22 munits/min, 132 mls/hr Documented by: Penicillin G Potassium 2.5 (millunits/ Sodium Chloride) 100 mls @ 55 mls/hr IV Q4H TYLER Last Admin: 05/29/20 00:11 Dose: Not Given Documented by: Oxytocin/Lactated Ringer's (Pitocin In Lr 10 Units/1,000 Ml) 10 unit in 1,000 mls @ 500 mls/hr IV .CONTINUOUS TYLER Lactated Ringer's (Ringers, Lactated) 1,000 mls @ 125 mls/hr IV ASDIRECTED TYLER Last Admin: 05/29/20 18:05 Dose: 125 mls/hr Documented by: Penicillin G Potassium 5 (millunits/ Sodium Chloride) 100 mls @ 55 mls/hr IV ONETIME ONE Stop: 05/29/20 05:04 Last Admin: 05/29/20 03:18 Dose: 55 mls/hr Documented by: Penicillin G Potassium 2.5 (millunits/ Sodium Chloride) 100 mls @ 55 mls/hr IV Q4H TYLER Last Admin: 05/29/20 15:50 Dose: 55 mls/hr Documented by: Lidocaine/Sodium Bicarbonate (Buffered Lidocaine 1% In Ns 8.4%) 0.25 ml IDERM ONETIME PRN PRN Reason: Prior to IV Start Methylergonovine Maleate (Methergine) Confirm Administered Dose 0.2 mg .ROUTE .STK-MED ONE Stop: 05/29/20 17:23 Last Admin: 05/29/20 18:08 Dose: Not Given Documented by: Methylergonovine Maleate (Methergine) 0.2 mg IM NOW STA Stop: 05/29/20 17:48 Last Admin: 05/29/20 17:25 Dose: 0.2 mg Documented by: Misoprostol (Cytotec) Confirm Administered Dose 25 mcg .ROUTE .STK-MED ONE Stop: 05/28/20 07:27 Last Admin: 05/28/20 07:30 Dose: 25 mcg Documented by: Misoprostol (Cytotec) 25 mcg VAG Q4H PRN PRN Reason: cervical ripening Last Admin: 05/28/20 17:06 Dose: 25 mcg Documented by: Nalbuphine HCl (Nubain) 10 mg IVPUSH Q2H PRN PRN Reason: Pain Ondansetron HCl (Zofran) 4 mg IVPUSH Q4H PRN PRN Reason: Nausea/Vomiting Last Admin: 05/29/20 14:29 Dose: 4 mg Documented by: Promethazine HCl (Phenergan) 25 mg IM ONETIME ONE Stop: 05/29/20 18:12 Last Admin: 05/30/20 02:30 Dose: Not Given Documented by: Sodium Chloride (Saline Flush) 10 ml FLUSH ASDIRECTED PRN PRN Reason: Keep Vein Open Sodium Chloride (Saline Flush) 10 ml FLUSH ASDIRECTED PRN PRN Reason: Keep Vein Open Tranexamic Acid (Cyklokapron) 1,000 mg IVPUSH ONETIME ONE Stop: 05/29/20 17:48 Last Admin: 05/29/20 17:55 Dose: 1,000 mg Documented by: - Infant Interaction Disposition, : [place] in Room with Family Interaction: Holding Infant Infant Feeding: Attempted ; Nursed Fair/Poor Support Person: - Recovery Exam Fundal Tone: Firm Fundal Level: At Umbilicus Fundal Placement: Midline Lochia Amount: Scant Lochia Color: Rubra/Red Perineum Description: Edematous, Other (see below) Other Perinuem Description: 2nd Degree with repair Episiotomy/Laceration: Approximated Bladder Status: Voiding - Exam General: Alert, Oriented, Cooperative GI/Abdominal Exam: Soft, Non-Tender Extremities: Normal Inspection Skin: Warm, Dry, Intact - Problem List & Annotations (1) 40 weeks gestation of SNOMED Code(s): 60319140 Code(s): Z3A.40 - 40 WEEKS GESTATION OF Status: Acute Current Visit: Yes (2) GBS (group B Streptococcus carrier), +RV culture, currently SNOMED Code(s): 5966390892437, 925149596, 2759590574049 Code(s): O99.820 - STREPTOCOCCUS B CARRIER STATE COMPLICATING Status: Acute Current Visit: Yes (3) Vacuum extraction, delivered, current hospitalization SNOMED Code(s): 790630197 Code(s): O66.5 - ATTEMPTED APPLICATION OF VACUUM EXTRACTOR AND FORCEPS Status: Acute Current Visit: Yes - Problem List Review Problem List Initiated/Reviewed/Updated: Yes - My Orders Last 24 Hours: My Active Orders 05/29/20 Dinner Regular Diet [DIET] 05/29/20 18:30 Acetaminophen [Tylenol] 650 mg PO Q4H PRN Benzocaine/Menthol [Dermoplast Pain Relief [place]] See Dose Instructions TOP ASDIRECTED PRN Docusate Sodium [Colace] 100 mg PO BID PRN Ibuprofen [Motrin] 600 mg PO Q6H PRN Sennosides [Senna] 8.6 mg PO BEDTIME PRN witch Steven [Tucks] 1 pad TOP ASDIRECTED PRN Heat Therapy [OM.PC] PRN 05/29/20 18:30 Activity as Tolerated [RC] PER UNIT ROUTINE Up ad Bernie [RC] ASDIRECTED Vital Signs [RC] 09,15,21,03 Assess Lochia [WOMSER] Per Unit Routine Assess Uterine Involution [WOMSER] Per Unit Routine Breast Pump [WOMSER] Per Unit Routine Ice Therapy [OM.PC] Per Unit Routine Perineal Care [OM.PC] Per Unit Routine Peripheral IV Discontinue [OM.PC] Routine Sitz Bath [OM.PC] Per Unit Routine 05/29/20 20:36 Verify Patient Consent Obtain [RC] ASDIRECTED Transfuse Red Blood Cells [COMM] Routine 05/29/20 20:45 Sodium Chloride 0.9% [Normal Saline] 1,000 ml IV ASDIRECTED 05/30/20 18:30 Heat Therapy [OM.PC] PRN - Assessment Assessment:: PPD#1 - Plan Plan:: * Routine cares * Breast feeding * On admission Hb of 10.1 then down to 8.3 last night immediately after delivery. Received 1 unit PRBC last night. This AM was 7.3. Doing ok, but has not been out of bed much. Will monitor throughout the day. If needed/feels unwell can consider additional unit * Discharge home tomorrow
--- NOTE | 2020-05-30 11:39 | PCM48HPAN ---
Post Anesthesia Note - EVALUATION WITHIN 48HRS OF ANESTHETIC Vital Signs in Normal Range: Yes Patient Participated in Evaluation: Yes Respiratory Function Stable: Yes Airway Patent: Yes Cardiovascular Function Stable: Yes Hydration Status Stable: Yes Pain Control Satisfactory: Yes Nausea and Vomiting Control Satisfactory: Yes Mental Status Recovered: Yes Vital Signs: Last Vital Signs Temp 37.3 C 05/30/20 07:39 Pulse 97 05/30/20 07:39 Resp 16 05/30/20 07:39 BP 99/49 L 05/30/20 07:39 Pulse Ox 99 05/30/20 07:39
--- NOTE | 2020-05-31 07:48 | PCM.DCSUM1 ---
Discharge Summary - Discharge Data Discharge Date: 05/31/20 Discharge Disposition: Home, Self-Care 01 Condition: Good - Referral to Home Health Primary Care Physician: Rowena Nuñez MD - Discharge Diagnosis/Problem(s) (1) 40 weeks gestation of SNOMED Code(s): 51070521 ICD Code: Z3A.40 - 40 WEEKS GESTATION OF Status: Acute Current Visit: Yes (2) GBS (group B Streptococcus carrier), +RV culture, currently SNOMED Code(s): 6527992210715, 184996703, 9231558121054 ICD Code: O99.820 - STREPTOCOCCUS B CARRIER STATE COMPLICATING Status: Acute Current Visit: Yes (3) Vacuum extraction, delivered, current hospitalization SNOMED Code(s): 017234992 ICD Code: O66.5 - ATTEMPTED APPLICATION OF VACUUM EXTRACTOR AND FORCEPS Status: Acute Current Visit: Yes - Patient Summary/Data Complications: None Consults: None Recommended Follow-up Testing/Procedures: Follow up in 3 weeks for check Hospital Course: 25 y/o at 40 0/7 wks who presented for elective IOL. Done with cytotec, mendoza bulb, then pitocin/AROM. She progressed well to complete dilation and underwent a VAVD for maternal exhaustion. See delivery note. Did have PPH treated with methergine, hemabate, tranexamic acid, and also did receive 1 unit PRBC. Did well and tolerated anemia afterwards. Was discharged home on PPD#2 - Patient Instructions Diet: Regular Diet as Tolerated Activity: As Tolerated Activity, Other: Pelvic rest for 6 weeks Driving: May Drive Today Showering/Bathing: May Shower Showering/Bathing, Other: May Bathe Notify Provider of: Fever, Increased Pain, Swelling and Redness, Drainage, Nausea and/or Vomiting - Discharge Plan *PRESCRIPTION DRUG MONITORING PROGRAM REVIEWED*: No *COPY OF PRESCRIPTION DRUG MONITORING REPORT IN PATIENT CARMEN: No Home Medications: Home Meds Prenat 115/Iron Fum/Folic/Dss [ 19 Tablet] 1 each PO DAILY 05/28/20 [History] Docusate Sodium [Colace] 100 mg PO BID PRN cap 05/30/20 [Rx] Ibuprofen [Motrin] 600 mg PO Q6H PRN tablet 05/30/20 [Rx] Referrals: Rowena Nuñez MD [Primary Care Provider] - (3 weeks for check ) - Discharge Summary/Plan Comment DC Time >30 min.: No - Patient Data Vitals - Most Recent: Last Vital Signs Temp 36.4 C 05/30/20 21:17 Pulse 72 05/30/20 21:17 Resp 15 05/30/20 21:17 BP 102/55 L 05/30/20 21:17 Pulse Ox 96 05/30/20 21:17 Weight - Most Recent: 62.142 kg I&O - Last 24 hours: Intake & Output 05/30/20 05/31/20 05/31/20 22:59 06:59 14:59 Intake Total 360 Balance 360 Med Orders - Current: Current Medications Acetaminophen (Tylenol) 650 mg PO Q4H PRN PRN Reason: mild pain or fever Benzocaine/Menthol (Dermoplast Pain Relief [place]) 0 gm TOP ASDIRECTED PRN PRN Reason: Perineal Comfort Measure Last Admin: 05/29/20 22:37 Dose: 1 canister Documented by: Docusate Sodium (Colace) 100 mg PO BID PRN PRN Reason: Constipation Sodium Chloride (Normal Saline) 1,000 mls @ 125 mls/hr IV ASDIRECTED TYLER Last Admin: 05/29/20 22:09 Dose: 125 mls/hr Documented by: Ibuprofen (Motrin) 600 mg PO Q6H PRN PRN Reason: Mild pain or fever Last Admin: 05/30/20 15:12 Dose: 600 mg Documented by: Senna (Senna) 8.6 mg PO BEDTIME PRN PRN Reason: Constipation Witch [place] (Tucks) 1 pad TOP ASDIRECTED PRN PRN Reason: Perineal Comfort Measure Last Admin: 05/29/20 22:37 Dose: 1 container Documented by: Discontinued Medications Bupivacaine HCl (Sensorcaine-Mpf 0.25%) 10 ml .ROUTE .STK-MED ONE Stop: 05/29/20 00:01 Carboprost Tromethamine (Hemabate Ds) Confirm Administered Dose 250 mcg .ROUTE .STK-MED ONE Stop: 05/29/20 18:00 Last Admin: 05/29/20 18:08 Dose: Not Given Documented by: Carboprost Tromethamine (Hemabate Ds) 250 mcg IM ONETIME ONE Stop: 05/29/20 18:06 Last Admin: 05/29/20 18:03 Dose: 250 mcg Documented by: Diphenhydramine HCl (Benadryl) 25 mg IVPUSH Q6H PRN PRN Reason: pruritis Ephedrine Sulfate (Ephedrine Sulfate) 5 mg IVPUSH ASDIRECTED PRN PRN Reason: Hypotension Fentanyl (Sublimaze) 100 mcg EPIDUR Q3H PRN PRN Reason: Pain Last Admin: 05/29/20 05:22 Dose: 100 mcg Documented by: Fentanyl/Bupivacaine HCl (Fentanyl/Bupivacaine/Ns 2 Mcg-0.125% 100 Ml) 100 ml EPIDUR ASDIRECTED PRN PRN Reason: Pain Last Admin: 05/29/20 12:01 Dose: 100 ml Documented by: Lactated Ringer's (Ringers, Lactated) 1,000 mls @ 40 mls/hr IV ASDIRECTED TYLER Oxytocin/Lactated Ringer's (Pitocin In Lr 10 Units/1,000 Ml) 10 unit in 1,000 mls @ 12 mls/hr IV TITRATE TYLER; Protocol Last Titration: 05/29/20 16:39 Dose: 22 munits/min, 132 mls/hr Documented by: Penicillin G Potassium 2.5 (millunits/ Sodium Chloride) 100 mls @ 55 mls/hr IV Q4H [facility] Last Admin: 05/29/20 00:11 Dose: Not Given Documented by: Oxytocin/Lactated Ringer's (Pitocin In Lr 10 Units/1,000 Ml) 10 unit in 1,000 mls @ 500 mls/hr IV .CONTINUOUS TYLER Lactated Ringer's (Ringers, Lactated) 1,000 mls @ 125 mls/hr IV ASDIRECTED TYLER Last Admin: 05/29/20 18:05 Dose: 125 mls/hr Documented by: Penicillin G Potassium 5 (millunits/ Sodium Chloride) 100 mls @ 55 mls/hr IV ONETIME ONE Stop: 05/29/20 05:04 Last Admin: 05/29/20 03:18 Dose: 55 mls/hr Documented by: Penicillin G Potassium 2.5 (millunits/ Sodium Chloride) 100 mls @ 55 mls/hr IV Q4H TYLER Last Admin: 05/29/20 15:50 Dose: 55 mls/hr Documented by: Lidocaine/Sodium Bicarbonate (Buffered Lidocaine 1% In Ns 8.4%) 0.25 ml IDERM ONETIME PRN PRN Reason: Prior to IV Start Methylergonovine Maleate (Methergine) Confirm Administered Dose 0.2 mg .ROUTE .STK-MED ONE Stop: 05/29/20 17:23 Last Admin: 05/29/20 18:08 Dose: Not Given Documented by: Methylergonovine Maleate (Methergine) 0.2 mg IM NOW STA Stop: 05/29/20 17:48 Last Admin: 05/29/20 17:25 Dose: 0.2 mg Documented by: Misoprostol (Cytotec) Confirm Administered Dose 25 mcg .ROUTE .STK-MED ONE Stop: 05/28/20 07:27 Last Admin: 05/28/20 07:30 Dose: 25 mcg Documented by: Misoprostol (Cytotec) 25 mcg VAG Q4H PRN PRN Reason: cervical ripening Last Admin: 05/28/20 17:06 Dose: 25 mcg Documented by: Nalbuphine HCl (Nubain) 10 mg IVPUSH Q2H PRN PRN Reason: Pain Ondansetron HCl (Zofran) 4 mg IVPUSH Q4H PRN PRN Reason: Nausea/Vomiting Last Admin: 05/29/20 14:29 Dose: 4 mg Documented by: Promethazine HCl (Phenergan) 25 mg IM ONETIME ONE Stop: 05/29/20 18:12 Last Admin: 05/30/20 02:30 Dose: Not Given Documented by: Sodium Chloride (Saline Flush) 10 ml FLUSH ASDIRECTED PRN PRN Reason: Keep Vein Open Sodium Chloride (Saline Flush) 10 ml FLUSH ASDIRECTED PRN PRN Reason: Keep Vein Open Tranexamic Acid (Cyklokapron) 1,000 mg IVPUSH ONETIME ONE Stop: 05/29/20 17:48 Last Admin: 05/29/20 17:55 Dose: 1,000 mg Documented by:
[2020-05-31] MEDS: Ibuprofen 600 MG Tab PO PRN (08:24)
== END 2020-05-31 15:12 | disposition home or self-care (01) | DRG 560 ==
LOC: JD.OB 07:12 → OBSVTOIN 05-29 17:03 → JD.OB 05-29 17:04
PROVIDERS: ADMIT Obstetrics & Gynecology; ATTEND Obstetrics & Gynecology
PROC: 10D07Z6 Extraction of Products of Conception, Vacuum, Via Natural or Artificial Opening (ICD-10-PCS; principal; 2020-05-29)
PROC: 30233N1 Transfusion of Nonautologous Red Blood Cells into Peripheral Vein, Percutaneous Approach (ICD-10-PCS; 2020-05-29)
PROC: 10907ZC Drainage of Amniotic Fluid, Therapeutic from Products of Conception, Via Natural or Artificial Opening (ICD-10-PCS; 2020-05-29)
PROC: 3E033VJ Introduction of Other Hormone into Peripheral Vein, Percutaneous Approach (ICD-10-PCS; 2020-05-29)
PROC: 0KQM0ZZ Repair Perineum Muscle, Open Approach (ICD-10-PCS; 2020-05-29)
PROC: 10907ZC Drainage of Amniotic Fluid, Therapeutic from Products of Conception, Via Natural or Artificial Opening (ICD-10-PCS; 2020-05-29)
PROC: 3E0R3BZ Introduction of Anesthetic Agent into Spinal Canal, Percutaneous Approach (ICD-10-PCS; 2020-05-29)
PROC: 00HU33Z Insertion of Infusion Device into Spinal Canal, Percutaneous Approach (ICD-10-PCS; 2020-05-29)
DX: O75.81 Maternal exhaustion complicating labor and delivery (principal); O99.824 Streptococcus B carrier state complicating childbirth; Z3A.40 40 weeks gestation of pregnancy; Z37.0 Single live birth; Z11.59 Encounter for screening for other viral diseases; O26.53 Maternal hypotension syndrome, third trimester; O70.1 Second degree perineal laceration during delivery
CPT/HCPCS: 01967; 36415; 36430; 51701; 51702; 59025; 59409; 85027; 85384; 85610; 85730; 86592; 86850; 86900; 86901; 86922; A9270-GY; J2210; J2405; J2540; J2590; J3010; J3490; J7030; J7050; J7120; P9016; U0002